=== PATIENT | female | born 1980 | race Caucasian/White ===

== ENCOUNTER 2018-05-20 11:39 | Emergency (ER) | payer OTHER ==
[~2018-05-20] VITALS: Ht 154.9 cm; Wt 98.9 kg
[2018-05-20 11:50] VITALS: Ht 154.9 cm; Wt 98.9 kg
[2018-05-20 12:36] LABS: UA SPECIFIC GRAVITY 1.025 (1.005-1.035); microscopic required? YES; urine erythrocyte NEGATIVE (NEGATIVE)
[2018-05-20 13:59] VITALS: BP 132/89
== END 2018-05-20 14:53 | disposition home or self-care (01) ==
LOC: ED 11:39
PROVIDERS: Emergency Medicine
DX: N39.0 Urinary tract infection, site not specified (principal); J45.909 Unspecified asthma, uncomplicated
CPT/HCPCS: J1885

== ENCOUNTER 2019-03-29 21:23 | Emergency (ER) | payer OTHER ==
[~2019-03-29] VITALS: Ht 154.9 cm; Wt 96.6 kg
[2019-03-29 21:26] VITALS: Ht 154.9 cm; Wt 96.6 kg
[2019-03-29 22:36] VITALS: BP 121/71
== END 2019-03-29 22:56 | disposition home or self-care (01) ==
LOC: ED 21:23
DX: J45.901 Unspecified asthma with (acute) exacerbation (principal)
CPT/HCPCS: J1100; J7613; J7644; J8540